=== PATIENT | female | born 1955 | race Caucasian/White ===

== ENCOUNTER 2017-12-14 12:18 | Observation (INO) | payer SELFPAY ==
[2017-12-14] VITALS (9 sets, daily range): BP systolic 131–203; BP diastolic 71–101; PULSE 65–98; RESP 17–20; TEMP 97.8–98.4; O2SAT 94–99
[~2017-12-14 12:18] MED LIST: LISI-587 PO
[2017-12-14] MEDS ORDERED: METOPROLOL TARTRATE 5 MG/5 ML VIAL IV PUSH ONE (12:45)
[2017-12-14] MEDS ORDERED: SODIUM CHLORIDE 0.9% FLUSH 10 ML FLUSH IVF PRN (12:45)
--- NOTE | 2017-12-14 12:54 | PD ---
HPI Chief Complaint: Cardiac Complaint Time Seen by Provider: 12:23 Travel History International Travel<30 days: No Contact w/Intl Traveler<30days: No Traveled to known affect area: No History of Present Illness HPI 62-year-old female presents to the emergency department via EMS for evaluation of chest pain. Patient states she has been having chest congestion and cold symptoms for 2 weeks. She states that approximately 2 days ago at 2 AM in the morning she started with chest pain that was sharp in nature and lasted approximately 12 hours. She has intermittent episodes since then. However, approximately 45 minutes prior to arrival she started with palpitations and chest pressure to the midsternal chest. She called EMS and she was found to be in SVT upon their arrival. She converted with vagal maneuvers. She received aspirin 325 mg and normal saline prior to arrival. Patient states that she currently has chest pressure, 2/10 to the midsternal chest without radiation. She reports history of hypertension but states that her sister will not allow her to see a physician so she is not on medications. She will occasionally get blood pressure medication from a neighbor, but does not consistently take it. Patient does state that she has been taking [id number] cold medications for the past 2 weeks for her cold symptoms. Patient states that she has been drinking vodka over the past week in small amounts to help her "pain". She also states that she is a smoker, has not smoked in the past month. She denies any illicit drug use. No recent surgery or travel. No new leg edema. No hemoptysis. No history DVT or PE. Moderate severity. PFSH Past Medical History Arthritis: No Asthma: Yes Autoimmune Disease: No Blood Disorders: No Anxiety: No Depression: Yes Heart Rhythm Problems: No Cancer: No Cardiovascular Problems: Yes High Cholesterol: No Chemotherapy: No Chest Pain: Yes Congestive Heart Failure: No COPD: Yes Cerebrovascular Accident: No Diabetes: No Diminished Hearing: No Endocrine: No GERD: No Glaucoma: No Genitourinary: No Headaches: No Hepatitis: No Hiatal Hernia: No Hypertension: Yes Immune Disorder: No Kidney Stones: No Musculoskeletal: No Neurologic: No Psychiatric: Yes Reproductive: No Respiratory: Yes Migraines: No Myocardial Infarction: No Radiation Therapy: No Renal Failure: No Seizures: Yes (PT STATED HE HAS HAD SEIZURES IN THE PAST NEVER DIAGNOSED) Sickle Cell Disease: No Sleep Apnea: No Thyroid Disease: No Ulcer: No Tetanus Vaccination: Unknown Influenza Vaccination: No ?: Not : 0 Para: 0 Past Surgical History Abdominal Surgery: Yes (hernia repair) AICD: No Appendectomy: No Arteriovenous Shunt: No Cardiac Surgery: No Cholecystectomy: No Ear Surgery: No Endocrine Surgery: No Eye Surgery: No Genitourinary Surgery: No Gynecologic Surgery: No Insulin Pump: No Joint Replacement: No Oral Surgery: No Pacemaker: No Thoracic Surgery: No Other Surgery: Yes ("R.FOREARM IN THE 90'S") Social History Alcohol Use: Yes (OCC. BEER) Tobacco Use: No (QUIT 1 MONTH AGO) Substance Use: No Allergies-Medications (Allergen,Severity, Reaction): Coded Allergies: prochlorperazine (Unverified Allergy, Severe, "FACE SWELLS UP", 03/17/17) penicillin G (Unverified Adverse Reaction, Severe, "HEART RACES", 03/17/17) pt states she is not allergic Reported Meds & Prescriptions Reported Meds & Active Scripts Active No Active Prescriptions or Reported Medications Review of Systems Except as stated in HPI: all other systems reviewed are Neg Physical Exam Narrative GENERAL: Well-nourished, well-developed female patient, afebrile. SKIN: Focused skin assessment warm/dry. HEAD: Normocephalic. Atraumatic. EYES: No scleral icterus. No injection or drainage. NECK: Supple, trachea midline. No JVD or lymphadenopathy. CARDIOVASCULAR: Regular rate and rhythm without murmurs, gallops, or rubs. Bilateral radial and pedal pulses are 2+. RESPIRATORY: Breath sounds equal bilaterally. No accessory muscle use. Lung sounds are clear to auscultation. GASTROINTESTINAL: Abdomen soft, non-tender, nondistended. MUSCULOSKELETAL: No cyanosis. Bilateral 1+ lower extremity edema. BACK: Nontender without obvious deformity. No CVA tenderness. Data Data Last Documented VS Vital Signs Date Time Temp Pulse Resp B/P (MAP) Pulse Ox O2 Delivery O2 Flow Rate FiO2 12/14/17 12:51 99 Room Air 12/14/17 12:51 12/14/17 12:34 97.8 96 18 Orders Orders Electrocardiogram (12/14/17 12:44) Basic Metabolic Panel (Bmp) (12/14/17 12:44) Ckmb (Isoenzyme) Profile (12/14/17 12:44) Complete Blood Count With Diff (12/14/17 12:44) Magnesium (Mg) (12/14/17 12:44) Prothrombin Time / Inr (Pt) (12/14/17 12:44) Act Partial Throm Time (Ptt) (12/14/17 12:44) Troponin I (12/14/17 12:44) Chest, Single Ap (12/14/17 12:44) Ecg Monitoring (12/14/17 12:44) Bilateral Bp Monitoring (12/14/17 12:44) Iv Access Insert/Monitor (12/14/17 12:44) Oximetry (12/14/17 12:44) Oxygen Administration (12/14/17 12:44) Sodium Chloride 0.9% Flush (Ns Flush) (12/14/17 12:45) Metoprolol Tartrate Inj (Lopressor Inj) (12/14/17 12:45) Labs Laboratory Tests Test 12/14/17 13:00 White Blood Count 6.7 TH/MM3 Red Blood Count 4.73 MIL/MM3 Hemoglobin 13.7 GM/DL Hematocrit 40.3 % Mean Corpuscular Volume 85.3 FL Mean Corpuscular Hemoglobin 28.9 PG Mean Corpuscular Hemoglobin Concent 33.9 % Red Cell Distribution Width 14.5 % Platelet Count 248 TH/MM3 Mean Platelet Volume 8.0 FL Neutrophils (%) (Auto) 67.8 % Lymphocytes (%) (Auto) 25.6 % Monocytes (%) (Auto) 5.4 % Eosinophils (%) (Auto) 0.5 % Basophils (%) (Auto) 0.7 % Neutrophils # (Auto) 4.5 TH/MM3 Lymphocytes # (Auto) 1.7 TH/MM3 Monocytes # (Auto) 0.4 TH/MM3 Eosinophils # (Auto) 0.0 TH/MM3 Basophils # (Auto) 0.0 TH/MM3 CBC Comment AUTO DIFF Differential Comment AUTO DIFF CONFIRMED Platelet Estimate NORMAL Platelet Morphology Comment NORMAL Prothrombin Time 10.0 SEC Prothromb Time International Ratio 1.0 RATIO Activated Partial Thromboplast Time 22.0 SEC Blood Urea Nitrogen 16 MG/DL Creatinine 1.10 MG/DL Random Glucose 115 MG/DL Calcium Level 8.8 MG/DL Magnesium Level 1.9 MG/DL Sodium Level 140 MEQ/L Potassium Level 4.0 MEQ/L Chloride Level 110 MEQ/L Carbon Dioxide Level 23.1 MEQ/L Anion Gap 7 MEQ/L Estimat Glomerular Filtration Rate 50 ML/MIN Total Creatine Kinase 72 U/L Troponin I LESS THAN 0.02 NG/ML MDM Medical Decision Making Medical Screen Exam Complete: Yes Emergency Medical Condition: Yes Medical Record Reviewed: Yes Interpretation(s) chest x-ray - CONCLUSION: 1. Minimal linear opacities in the left lower lung zone likely reflecting atelectasis/scarring. Differential Diagnosis SVT versus ACS versus electrolyte abnormality versus chronic hypertension versus pneumonia versus pneumothorax versus URI versus PE Narrative Course 62-year-old female presents to the emergency department for evaluation of chest pain. EKG shows sinus rhythm, heart rate 98, no acute ST changes. IV access established. CBC, BMP, magnesium, CK, troponin, PTT, PT/INR, chest x-ray are ordered and pending. Patient is given metoprolol 5 mg IV for hypertension. CBC is unremarkable. BMP shows creatinine of 1.10. Magnesium is 1.9. CK is 72. Troponin is less than 0.02. Coags are unremarkable. Chest x-ray shows Minimal linear opacities in the left lower lung zone likely reflecting atelectasis/scarring. Patient will be admitted to the chest pain center for further evaluation and disposition. Diagnosis Primary Impression: Chest pain Qualified Codes: R07.9 - Chest pain, unspecified Admitting Information Admitting Physician Requests: Observation Scripts No Active Prescriptions or Reported Ita Chiang December 14, 2017 12:54
[2017-12-14 13:26] LABS: AUTOMATED NEUTROPHIL # 4.5 TH/MM3 (1.8-7.7); BASOPHIL % 0.7 % (0.0-2.0); EOSINOPHIL % 0.5 % (0.0-4.0); HEMATOCRIT 40.3 % (35.0-46.0); HEMOGLOBIN 13.7 GM/DL (11.6-15.3); LYMPH % 25.6 % (9.0-44.0); LYMPHOCYTE # 1.7 TH/MM3 (1.0-4.8); MEAN CELL VOLUME 85.3 FL (80.0-100.0); MEAN CORPUSCULAR HEMOGLOBIN 28.9 PG (27.0-34.0); MEAN CORPUSCULAR HGB CONC 33.9 % (32.0-36.0); MONO % 5.4 % (0.0-8.0); MONOCYTE # 0.4 TH/MM3 (0-0.9); NEUT % 67.8 % (16.0-70.0); PLATELET COUNT 248 TH/MM3 (150-450); RED BLOOD COUNT 4.73 MIL/MM3 (4.00-5.30); RED CELL DISTRIBUTION WIDTH 14.5 % (11.6-17.2); WHITE BLOOD COUNT 6.7 TH/MM3 (4.0-11.0)
[2017-12-14 13:35] LABS: BICARBONATE 23.1 MEQ/L (21.0-32.0); BLOOD UREA NITROGEN 16 MG/DL (7-18); CALCIUM 8.8 MG/DL (8.5-10.1); CHLORIDE 110 MEQ/L (98-107); GLOMERULAR FILTRATION RATE 50 ML/MIN (>89); GLUCOSE,RANDOM 115 MG/DL (74-106); MAGNESIUM 1.9 MG/DL (1.5-2.5); SODIUM (NA) 140 MEQ/L (136-145)
--- NOTE | 2017-12-14 13:37 | RADRPT ---
EXAM DATE/TIME: 12/14/2017 13:10 [facility] COMPARISON: No previous studies available for comparison. INDICATIONS : Chest pain. MEDICAL HISTORY : None. SURGICAL HISTORY : None. ENCOUNTER: Initial ACUITY: 1 day PAIN SCORE: 10/10 LOCATION: Bilateral chest FINDINGS: Minimal linear opacities in the left lower lung zone. Cardiomediastinal contours are within normal li mits. Bony thorax is grossly intact. CONCLUSION: 1. Minimal linear opacities in the left lower lung zone likely reflecting atelectasis/scarring. Herman Melton MD on December 14, 2017 at 13:33 Board Certified Radiologist. This report was verified electronically.
[2017-12-14 13:38] LABS: TROPONIN I LESS THAN 0.02 NG/ML (0.02-0.05)
[2017-12-14] MEDS ORDERED: ACETAMINOPHEN 500 MG CPLT PO PRN (14:45)
[2017-12-14] MEDS ORDERED: NITROGLYCERIN 0.4 MG SL 25 TABS/BTL SL PRN (14:45)
[2017-12-14] MEDS ORDERED: ONDANSETRON ODT 4 MG TAB PO PRN (14:45)
--- NOTE | 2017-12-14 14:57 | PD ---
Data Data Last Documented VS Vital Signs Date Time Temp Pulse Resp B/P (MAP) Pulse Ox O2 Delivery O2 Flow Rate FiO2 12/14/17 12:51 99 Room Air 12/14/17 12:51 12/14/17 12:34 97.8 96 18 Orders Orders Electrocardiogram (12/14/17 12:44) Basic Metabolic Panel (Bmp) (12/14/17 12:44) Ckmb (Isoenzyme) Profile (12/14/17 12:44) Complete Blood Count With Diff (12/14/17 12:44) Magnesium (Mg) (12/14/17 12:44) Prothrombin Time / Inr (Pt) (12/14/17 12:44) Act Partial Throm Time (Ptt) (12/14/17 12:44) Troponin I (12/14/17 12:44) Chest, Single Ap (12/14/17 12:44) Ecg Monitoring (12/14/17 12:44) Bilateral Bp Monitoring (12/14/17 12:44) Iv Access Insert/Monitor (12/14/17 12:44) Oximetry (12/14/17 12:44) Oxygen Administration (12/14/17 12:44) Sodium Chloride 0.9% Flush (Ns Flush) (12/14/17 12:45) Metoprolol Tartrate Inj (Lopressor Inj) (12/14/17 12:45) Admit Order (Ed Use Only) (12/14/17 13:57) Labs Laboratory Tests Test 12/14/17 13:00 White Blood Count 6.7 TH/MM3 Red Blood Count 4.73 MIL/MM3 Hemoglobin 13.7 GM/DL Hematocrit 40.3 % Mean Corpuscular Volume 85.3 FL Mean Corpuscular Hemoglobin 28.9 PG Mean Corpuscular Hemoglobin Concent 33.9 % Red Cell Distribution Width 14.5 % Platelet Count 248 TH/MM3 Mean Platelet Volume 8.0 FL Neutrophils (%) (Auto) 67.8 % Lymphocytes (%) (Auto) 25.6 % Monocytes (%) (Auto) 5.4 % Eosinophils (%) (Auto) 0.5 % Basophils (%) (Auto) 0.7 % Neutrophils # (Auto) 4.5 TH/MM3 Lymphocytes # (Auto) 1.7 TH/MM3 Monocytes # (Auto) 0.4 TH/MM3 Eosinophils # (Auto) 0.0 TH/MM3 Basophils # (Auto) 0.0 TH/MM3 CBC Comment AUTO DIFF Differential Comment AUTO DIFF CONFIRMED Platelet Estimate NORMAL Platelet Morphology Comment NORMAL Prothrombin Time 10.0 SEC Prothromb Time International Ratio 1.0 RATIO Activated Partial Thromboplast Time 22.0 SEC Blood Urea Nitrogen 16 MG/DL Creatinine 1.10 MG/DL Random Glucose 115 MG/DL Calcium Level 8.8 MG/DL Magnesium Level 1.9 MG/DL Sodium Level 140 MEQ/L Potassium Level 4.0 MEQ/L Chloride Level 110 MEQ/L Carbon Dioxide Level 23.1 MEQ/L Anion Gap 7 MEQ/L Estimat Glomerular Filtration Rate 50 ML/MIN Total Creatine Kinase 72 U/L Troponin I LESS THAN 0.02 NG/ML MDM Supervised Visit with [facility]EENA: Yes Narrative Course The history, exam, and medical decision-making in the associated midlevel provider note were completed with my assistance. I reviewed and agree with the findings presented. I attest that I had a [id number] encounter with the patient on the same day, and personally performed and documented my assessment and findings in the medical record. *My assessment and Findings: This is a 62-year-old female who presents to the emergency department with chest discomfort described as a stabbing pain that goes from her back into her chest associated with a productive cough. She has been struggling with what sounds like bronchitis for the past several days. The symptoms seem to get worse at night. She appears very well on exam and is somewhat preoccupied with talking about her sister and some financial quarrels she has been having with her family. EKG is nonischemic and has no signs of pericarditis. Labs are all reassuring. I do not suspect an aortic dissection given the well appearance of the patient. Patient will be placed in observation for serial cardiac enzymes although I suspect her pain is pulmonary in nature, she is at risk for coronary disease given her age, hypertension and history of smoking. Diagnosis Primary Impression: Chest pain Qualified Codes: R07.9 - Chest pain, unspecified Scripts No Active Prescriptions or Reported Meds Shahnaz Cano MD December 14, 2017 14:57
[2017-12-14] MEDS ORDERED: RESP: ALBUTEROL 2.5 MG/3 ML NEB (SCH) INH ONE (15:00)
--- NOTE | 2017-12-14 15:51 | HHI.HP ---
HPI Primary Care Physician No Primary Care Physician Chief Complaint Chest pain History of Present Illness 62-year-old female with history of hypertension presents emergency room for further evaluation of nonexertional chest pain. Onset 17 days. Location substernal. Characterized as chest pressure and congestion. Moderate in severity. No radiation of pain. Duration generally last 30 minutes. No associated symptoms of nausea, vomiting, diaphoresis, or shortness of breath. No known precipitating or relieving factors. Today's episode occurred around 1130 with accompanied palpations. Denies any fever, chills, or cough. Reports taking guaifenesin for the past 17 days due to chest congestion related to cleaning an air conditioner and breathing in large amount of dust. Does not have a PCP provider, repetitively states she does not have a PCP because her sister will not allow her to go. ER MD was given report by EMS patient was in SVT with rate 170 that quickly converted with vagus maneuvers. Available EMS strips reviewed did not indicated SVT, unsure if other EMS strips obtained and currently not available. Review of Systems General: No fatigue, weakness, fever, or chills. Chest congestion x 17 days, no cough. HEENT: No DEWEY, no nasal congestion or drainage, no dysphasia CV: As stated above. No current chest pain or pressure. No further palpitations. RESP: No SOB, cough, or wheeze. Longstanding history of asthma and chronic bronchitis, not taking any inhalers. GI: No nausea, vomiting, bowel changes, diarrhea, constipation, pain, distention , melena, or blood in the stool. No unintentional weight gain or weight loss. : No dysuria, urgency, frequency EXT: No lower leg edema, no paraesthesias MS: No discomfort, injury, trauma, or change in ROM NEURO: No change in memory, dizziness, difficulty with balance, LOC, or motor/ sensory deficits PSYCH: No anxiety or depression SKIN: No rashes, no concerning lesions Past Family Social History Allergies: Coded Allergies: prochlorperazine (Unverified Allergy, Severe, "FACE SWELLS UP", 03/17/17) penicillin G (Unverified Adverse Reaction, Severe, "HEART RACES", 03/17/17) pt states she is not allergic Past Medical History Hypertension, asthma, chronic bronchitis Past Surgical History Hernia repair Reported Medications Reported Meds & Active Scripts Active No Active Prescriptions or Reported Medications Active Ordered Medications Current Medications Medications (Trade) Dose Ordered Sig/Zoraida Route Start Time Stop Time Status Last Admin (NS Flush) 2 ml UNSCH PRN IVF 12/14/17 12:45 12/14/17 13:14 (NS Flush) 2 ml BID IV FLUSH 12/14/17 21:00 (Tylenol) 500 mg Q4H PRN PO 12/14/17 14:45 (Zofran Odt) 4 mg Q6H PRN PO 12/14/17 14:45 (Nitrostat Sl) 0.4 mg Q5M PRN SL 12/14/17 14:45 (Aspirin) 325 mg DAILY PO 12/15/17 09:00 Family History Noncontributory for early onset cardiovascular disease Social History Known hypertension, currently not on medication. No known coronary artery disease, diabetes, or hyperlipidemia. Former 1.5 pack/day smoker quit 1 month ago. Smoked most of her adult life. Endorses daily alcohol past 2 weeks including 1 shot of vodka. Denies any drug use. Past cardiac testing Physical Exam Vital Signs Vital Signs Date Time Temp Pulse Resp B/P (MAP) Pulse Ox O2 Delivery O2 Flow Rate FiO2 12/14/17 15:31 75 20 163/87 (112) 94 Room Air 12/14/17 14:56 98 21 12/14/17 12:51 99 Room Air 12/14/17 12:51 99 Room Air 12/14/17 12:34 97.8 96 18 203/101 (135) 99 Room Air 12/14/17 12:34 96 18 99 Room Air 12/14/17 12:23 97.8 98 18 203/101 (135) 99 Physical Exam GENERAL: Alert WN, WD, NAD, pleasant, elderly female who appears older than stated age HEAD: NC, AT CV: RRR, without murmur, rub, gallop, no JVD, S1-S2 no S3-S4. Chest wall nontender with palpation. RESP: Clear lungs throughout bilateral, no crackles, wheeze, rhonchi, symmetrical chest rise, nonlabored, able to speak in full sentences ABD: Soft, NT, ND, no masses, positive bowel tones EXT: Pulses +2x4, +1 bilateral lower extremity edema MS: Normal tone x4 extremities, nontender, no obvious deformities, full range of motion NEURO: CN II through CN XII grossly intact, motor strength 5/5 PSYCH: A+O x3, pleasant affect, appropriate speech, and mood. Questionable insight and judgment with possible history of psychological issues. SKIN: Normal turgor, normal texture, no lesions, no rashes Laboratory Laboratory Tests Test 12/14/17 13:00 White Blood Count 6.7 Red Blood Count 4.73 Hemoglobin 13.7 Hematocrit 40.3 Mean Corpuscular Volume 85.3 Mean Corpuscular Hemoglobin 28.9 Mean Corpuscular Hemoglobin Concent 33.9 Red Cell Distribution Width 14.5 Platelet Count 248 Mean Platelet Volume 8.0 Neutrophils (%) (Auto) 67.8 Lymphocytes (%) (Auto) 25.6 Monocytes (%) (Auto) 5.4 Eosinophils (%) (Auto) 0.5 Basophils (%) (Auto) 0.7 Neutrophils # (Auto) 4.5 Lymphocytes # (Auto) 1.7 Monocytes # (Auto) 0.4 Eosinophils # (Auto) 0.0 Basophils # (Auto) 0.0 CBC Comment AUTO DIFF Differential Comment AUTO DIFF CONFIRMED Platelet Estimate NORMAL Platelet Morphology Comment NORMAL Prothrombin Time 10.0 Prothromb Time International Ratio 1.0 Activated Partial Thromboplast Time 22.0 Blood Urea Nitrogen 16 Creatinine 1.10 Random Glucose 115 Calcium Level 8.8 Magnesium Level 1.9 Sodium Level 140 Potassium Level 4.0 Chloride Level 110 Carbon Dioxide Level 23.1 Anion Gap 7 Estimat Glomerular Filtration Rate 50 Total Creatine Kinase 72 Troponin I LESS THAN 0.02 Result Diagram: 12/14/17 1300 12/14/17 1300 Imaging Last 48 hours Impressions Chest X-Ray 12/14/17 1244 Signed Impressions: Service Date/Time: Thursday, December 14, 2017 13:10 - CONCLUSION: 1. Minimal linear opacities in the left lower lung zone likely reflecting atelectasis/scarring. Herman Melton MD Course EKG Normal sinus rhythm, left axis deviation, no ST-T segment changes Caprini VTE Risk Assessment Caprini VTE Risk Assessment: Mod/High Risk (score >= 2) Caprini Risk Assessment Model Point Value = 1 Point Value = 2 Point Value = 3 Point Value = 5 Age 41-60 Minor surgery BMI > 25 kg/m2 Swollen legs Varicose veins or History of unexplained or recurrent spontaneous Oral contraceptives or hormone replacement Sepsis (< 1 month) Serious lung disease, including pneumonia (< 1 month) Abnormal pulmonary function Acute myocardial infarction Congestive heart failure (< 1 month) History of inflammatory bowel disease Medical patient at bed rest Age 61-74 Arthroscopic surgery Major open surgery (> 45 min) Laparoscopic surgery (> 45 min) Malignancy Confined to bed (> 72 hours) Immobilizing plaster cast Central venous access Age >= 75 History of VTE Family history of VTE Factor V Leiden Prothrombin [id number] Lupus anticoagulant Anticardiolipin antibodies Elevated serum homocysteine Heparin-induced thrombocytopenia Other congenital or acquired thrombophilia Stroke (< 1 month) Elective arthroplasty Hip, pelvis, or leg fracture Acute spinal cord injury (< 1 month) Prophylaxis Regimen Total Risk Factor Score Risk Level Prophylaxis Regimen 0-1 Low Early ambulation 2 Moderate Order ONE of the following: *Sequential Compression Device (SCD) *Heparin 5000 units SQ BID 3-4 Higher Order ONE of the following medications: *Heparin 5000 units SQ TID *Enoxaparin/Lovenox 40 mg SQ daily (WT < 150 kg, CrCl > 30 mL/min) *Enoxaparin/Lovenox 30 mg SQ daily (WT < 150 kg, CrCl > 10-29 mL/min) *Enoxaparin/Lovenox 30 mg SQ BID (WT < 150 kg, CrCl > 30 mL/min) AND/OR *Sequential Compression Device (SCD) 5 or more Highest Order ONE of the following medications: *Heparin 5000 units SQ TID (Preferred with Epidurals) *Enoxaparin/Lovenox 40 mg SQ daily (WT < 150 kg, CrCl > 30 mL/min) *Enoxaparin/Lovenox 30 mg SQ daily (WT < 150 kg, CrCl > 10-29 mL/min) *Enoxaparin/Lovenox 30 mg SQ BID (WT < 150 kg, CrCl > 30 mL/min) AND *Sequential Compression Device (SCD) Assessment and Plan Assessment and Plan #1 Atypical chest pain-admitted to chest pain center. Rule out with 3 sets of EKGs, cardiac enzymes, and monitor on telemetry overnight. Seen and evaluated by Dr. Shay Estrada. If ruled out, plans to complete Lexiscan in morning. Patient agreeable to plan of care. #2 Hypertension-continue to monitor, amlodipine 5mg daily. Strongly encouraged and stressed importance tight blood pressure control and establishing with a primary care provider. Rosanna Costello December 14, 2017 15:51
[2017-12-14 17:14] LABS: TROPONIN I LESS THAN 0.02 NG/ML (0.02-0.05)
[2017-12-14] MEDS ORDERED: RESP: ALBUTEROL 2.5 MG/3 ML NEB (PRN) NEB (17:30)
[2017-12-14] MEDS ORDERED: AMLO5TAB2 PO (18:04)
[2017-12-14] MEDS: amLODIPine BESYLATE 5 MG TAB PO SCH (18:15)
[2017-12-14 20:03] LABS: TROPONIN I LESS THAN 0.02 NG/ML (0.02-0.05)
[2017-12-14] MEDS: SODIUM CHLORIDE 0.9% FLUSH 10 ML FLUSH IV FLUSH SCH (21:05)
[2017-12-15 00:47] VITALS: BP 136/71; PULSE 76; RESP 16; TEMP 98.4; O2SAT 97
[2017-12-15 04:28] VITALS: BP 139/78; PULSE 69; RESP 16; TEMP 98.1; O2SAT 95
[2017-12-15 07:23] VITALS: BP 176/85; PULSE 65; RESP 20; TEMP 98.4; O2SAT 97
[2017-12-15 07:53] VITALS: PULSE 66
[2017-12-15] MEDS: SODIUM CHLORIDE 0.9% FLUSH 10 ML FLUSH IV FLUSH SCH (08:27)
[2017-12-15] MEDS: amLODIPine BESYLATE 5 MG TAB PO SCH (08:28)
--- NOTE | 2017-12-15 08:43 | EKG ---
Date Performed: 12/14/2017 Time Performed: 18:39:06 PTAGE: 62 years EKG: Sinus rhythm NORMAL ECG Since PREVIOUS TRACING , no significant change noted PREVIOUS TRACIN12/14/2017 16.09 DOCTOR: Esperanza Joseph Interpretating Date/Time 12/15/2017 08:41:57
--- NOTE | 2017-12-15 08:47 | EKG ---
Date Performed: 12/14/2017 Time Performed: 12:39:40 PTAGE: 62 years EKG: Sinus rhythm BORDERLINE LEFT AXIS DEVIATION BORDERLINE ECG Since PREVIOUS TRACING , no significant change noted DOCTOR: Esperanza Joseph Interpretating Date/Time 12/15/2017 08:46:41
--- NOTE | 2017-12-15 08:51 | EKG ---
Date Performed: 12/14/2017 Time Performed: 16:09:18 PTAGE: 62 years EKG: Sinus rhythm BORDERLINE LEFT AXIS DEVIATION LOW QRS VOLTAGE IN PRECORDIAL LEADS BORDERLINE ECG Since PREVIOUS TRACING , no significant change noted PREVIOUS TRACIN12/14/2017 12.39 DOCTOR: Esperanza Joseph Interpretating Date/Time 12/15/2017 08:49:36
[2017-12-15] MEDS ORDERED: ASPIRIN 325 MG TAB PO SCH (09:00)
[2017-12-15] MEDS ORDERED: REGADENOSON INJ 0.4 MG/5 ML SYR ONE (09:45)
--- NOTE | 2017-12-15 11:02 | RADRPT ---
EXAM DATE/TIME: 12/15/2017 09:27 [facility] COMPARISON: No previous studies available for comparison. INDICATIONS : Mid chest pain for three weeks. Angina. DOSE: 26.4 mCi Tc99m Myoview at stress. 8.2 mCi Tc99m Myoview at rest. 0.4 mg Lexiscan STRESS SYMPTOMS: None. EJECTION FRACTION: > 70% MEDICAL HISTORY : Hypertension. Asthma. SURGICAL HISTORY : Umbilical hernia repair. ENCOUNTER: Initial ACUITY: 3 weeks PAIN SCALE: 5/10 LOCATION: Midsternal chest TECHNIQUE: The patient underwent pharmacologic stress with infusion of prescribed dose. Continuous ECG tracing was monitored during stress. Gated SPECT imaging was performed after stress and conventional SPECT i maging was performed at rest. The examination was performed on a SPECT/CT scanner, both attenuation and non-corrected datasets were reviewed. FINDINGS: DISTRIBUTION: The maximum perfused segment at stress is in the septal wall. PERFUSION STUDY: The pattern of perfusion at stress is within normal limits. GATED STUDY: There is intact wall motion and thickening without hypokinetic or dyskinetic segments. CONCLUSION: 1. No evidence for stress-induced ischemia. 2. Intact wall motion with EF of 70%. RISK CATEGORY: Low (<1% Annual Mortality Rate) Herman Melton MD on December 15, 2017 at 10:58 Board Certified Radiologist. This report was verified electronically.
[2017-12-15 11:25] VITALS: BP_SYST 147; BP_SYST 162; BP_DIAS 74; BP_DIAS 81; PULSE 80; PULSE 87; RESP 20; TEMP 98.9; O2SAT 96; O2SAT 97
[2017-12-15 11:40] VITALS: PULSE 75
--- NOTE | 2017-12-15 11:52 | PD.CARD.PN ---
Subjective Subjective Remarks Denies chest pain. Complains of right foot pain. 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." Objective Medications Current Medications Medications (Trade) Dose Ordered Sig/Zoraida Route Start Time Stop Time Status Last Admin (NS Flush) 2 ml UNSCH PRN IVF 12/14/17 12:45 12/14/17 13:14 (NS Flush) 2 ml BID IV FLUSH 12/14/17 21:00 12/15/17 08:27 (Tylenol) 500 mg Q4H PRN PO 12/14/17 14:45 (Zofran Odt) 4 mg Q6H PRN PO 12/14/17 14:45 (Nitrostat Sl) 0.4 mg Q5M PRN SL 12/14/17 14:45 (Aspirin) 325 mg DAILY PO 12/15/17 09:00 12/15/17 08:27 (Norvasc) 5 mg DAILY PO 12/14/17 17:30 12/15/17 08:28 (Albuterol Neb) 2.5 mg Q2HR NEB PRN NEB 12/14/17 17:30 Vital Signs / I&O Vital Signs Date Time Temp Pulse Resp B/P (MAP) Pulse Ox O2 Delivery O2 Flow Rate FiO2 12/15/17 11:25 98.9 80 20 162/74 (103) 97 12/15/17 07:53 66 12/15/17 07:23 98.4 65 20 176/85 (115) 97 12/15/17 04:28 98.1 69 16 139/78 (98) 95 12/15/17 00:47 98.4 76 16 136/71 (92) 97 12/14/17 23:07 65 12/14/17 20:25 98.3 76 17 131/71 (91) 96 12/14/17 19:43 21 12/14/17 16:38 98.4 81 20 147/85 (105) 98 12/14/17 15:59 81 20 189/97 (127) 96 Room Air 12/14/17 15:31 75 20 163/87 (112) 94 Room Air 12/14/17 14:56 98 21 12/14/17 12:51 99 Room Air 12/14/17 12:51 99 Room Air 12/14/17 12:34 97.8 96 18 203/101 (135) 99 Room Air 12/14/17 12:34 96 18 99 Room Air 12/14/17 12:23 97.8 98 18 203/101 (135) 99 Physical Exam General: No apparent distress. Lungs: Clear to auscultate. Cardiac regular rate and rhythm. No murmur gallop or rub. Musculoskeletal: No appreciable swelling or bruising of the right foot. I cannot elicit pain palpating the area when the patient was distracted. Strong dorsalis pedis pulses. Capillary refill is normal. No calf tenderness or edema. No Homans sign. Laboratory Laboratory Tests Test 12/14/17 13:00 12/14/17 16:08 12/14/17 18:55 White Blood Count 6.7 TH/MM3 Red Blood Count 4.73 MIL/MM3 Hemoglobin 13.7 GM/DL Hematocrit 40.3 % Mean Corpuscular Volume 85.3 FL Mean Corpuscular Hemoglobin 28.9 PG Mean Corpuscular Hemoglobin Concent 33.9 % Red Cell Distribution Width 14.5 % Platelet Count 248 TH/MM3 Mean Platelet Volume 8.0 FL Neutrophils (%) (Auto) 67.8 % Lymphocytes (%) (Auto) 25.6 % Monocytes (%) (Auto) 5.4 % Eosinophils (%) (Auto) 0.5 % Basophils (%) (Auto) 0.7 % Neutrophils # (Auto) 4.5 TH/MM3 Lymphocytes # (Auto) 1.7 TH/MM3 Monocytes # (Auto) 0.4 TH/MM3 Eosinophils # (Auto) 0.0 TH/MM3 Basophils # (Auto) 0.0 TH/MM3 CBC Comment AUTO DIFF Differential Comment AUTO DIFF CONFIRMED Platelet Estimate NORMAL Platelet Morphology Comment NORMAL Prothrombin Time 10.0 SEC Prothromb Time International Ratio 1.0 RATIO Activated Partial Thromboplast Time 22.0 SEC Blood Urea Nitrogen 16 MG/DL Creatinine 1.10 MG/DL Random Glucose 115 MG/DL Calcium Level 8.8 MG/DL Magnesium Level 1.9 MG/DL Sodium Level 140 MEQ/L Potassium Level 4.0 MEQ/L Chloride Level 110 MEQ/L Carbon Dioxide Level 23.1 MEQ/L Anion Gap 7 MEQ/L Estimat Glomerular Filtration Rate 50 ML/MIN Total Creatine Kinase 72 U/L 64 U/L 66 U/L Troponin I LESS THAN 0.02 NG/ML LESS THAN 0.02 NG/ML LESS THAN 0.02 NG/ML Imaging Last 24 hours Impressions Myocardial Perfusion Scan Nuc Med 12/15/17 0000 Signed Impressions: Service Date/Time: Friday, December 15, 2017 09:27 - CONCLUSION: 1. No evidence for stress-induced ischemia. 2. Intact wall motion with EF of 70%%. RISK CATEGORY: Low (<1%% Annual Mortality Rate) Herman Melton MD Chest X-Ray 12/14/17 1244 Signed Impressions: Service Date/Time: Thursday, December 14, 2017 13:10 - CONCLUSION: 1. Minimal linear opacities in the left lower lung zone likely reflecting atelectasis/scarring. Herman Melton MD Assessment and Plan Assessment and Plan * Chest pain: Patient had a nonischemic Lexiscan and will be discharged home at this time. Follow-up with PCP. Return to ED for interval issues. * Hypertension: Rx amlodipine. * Foot pain: Patient declines x-ray. Patient utilize ice and elevation. Motrin as needed. Patient is stable at this time. She is agreeable to this plan. Jamar Baldwin December 15, 2017 11:52
--- NOTE | 2017-12-15 11:53 | HHI.DCPOC ---
Discharge Care Plan Diagnosis: (1) Chest pain (2) Hypertension (3) Foot pain Goals to Promote Your Health * To prevent worsening of your condition and complications * To maintain your health at the optimal level Directions to Meet Your Goals Take your medications as prescribed Follow your dietary instruction Follow activity as directed Keep your appointments as scheduled Take your immunizations and boosters as scheduled If your symptoms worsen call your PCP, if no PCP go to Urgent Care Center or Emergency Room Smoking is Dangerous to Your Health. Avoid second hand smoke Call the 24-hour hour crisis hotline for domestic abuse at Jamar Baldwin December 15, 2017 11:53
--- NOTE | 2017-12-15 16:54 | TR ---
Date Performed: 12/15/2017 Time Performed: 09:56:05 DOCTOR: Esperanza Joseph DRUG LIST: CLINICAL HISTORY: REASON FOR TEST: REASON FOR ENDING: OBSERVATION: CONCLUSION: Lexiscan stress test was performed under standard four minute protocol. Radionuclid e was injected one minute prior to ending the test. No electrocardiographic abormalities were present to suggest ischemia. Nuclear imaging and interpretation are pending. COMMENTS:
== END 2017-12-15 17:31 | disposition home or self-care (01) ==
LOC: NEPC 12:18 → NEDA 13:59 → NEPHCDU 16:08
PROVIDERS: ADMIT Internal Medicine Cardiovascular Disease; ATTEND Internal Medicine Cardiovascular Disease
DX: R07.89 Other chest pain (principal); R60.0 Localized edema; M79.671 Pain in right foot; I10 Essential (primary) hypertension; J44.9 Chronic obstructive pulmonary disease, unspecified; F32.9 Major depressive disorder, single episode, unspecified; Z87.891 Personal history of nicotine dependence
CPT/HCPCS: 71045; 78452; 80048; 82550; 83735; 84484; 85025; 85610; 85730; 93005; 93017; 94664; 96374; 99285; A9502; G0378; J2785; J7613